=== PATIENT | female | born 1965 | race Hispanic/Latino ===

== ENCOUNTER 2016-11-08 07:31 | Emergency (ER) | payer MEDICAID, OTHER ==
[~2016-11-08] VITALS: Ht 172.7 cm; Wt 72.7 kg
[2016-11-08 07:40] VITALS: BP 147/90; PULSE 66; RESP 12; O2SAT 100
[2016-11-08] MEDS ORDERED: 0.9% Sodium Chloride 1,000 ML IV ONE (08:59)
[2016-11-08] MEDS ORDERED: Ondansetron 2 mg/mL 2 mL Inj IVPUSH ONE (09:00)
[2016-11-08] MEDS ORDERED: Haloperidol 5 mg/mL Inj IVPUSH ONE (09:00)
[2016-11-08] MEDS ORDERED: Dexamethasone 10 mg/mL Inj IVPUSH ONE (09:00)
--- NOTE | 2016-11-08 09:40 | ED.REPORT ---
HPI-Headache Date of Service Nov 08, 2016 ED Provider: Josefina Conrad MD A 50 year old female with a history of depression and a family history of stroke presents to the ED complaining of a headache. The pt has been experiencing this headache for three days and noticed right-sided facial numbness this morning. She has had similar headaches for the last three years, which have been gradually worsening, but has never experienced facial numbness. She did not have headaches prior to three years ago. Her PCP diagnosed her with stress headaches, but she has not had any further work up. The pt admits to nausea but denies vomiting, fever, chills, weakness, stiffness, weight loss or gain, shortness of breath, photophobia or paresthesias. She has not taken any medications to address her symptoms. Nursing Notes Stated Complaint: HEADACHE,NECK AND RIGHT SIDE OF FACE Chief Complaint: Headache Nursing Notes Reviewed: Yes Allergies: Coded Allergies: No Known Allergies (Unverified , 11/08/16) General Time Seen by MD: 07:57 Chief Complaint Headache Hx Obtained From: Patient Arrived By: Walk-in Sudden in Onset?: No Onset Occurred: 3 days ago Symptom Duration: Since onset Recent Healthcare: No recent hospitalization Similar Sx Previous: No Past Medical History Past Medical History depression headaches x3 years Past Surgical History none reported Family History stroke (sister) Smoking History Unknown if Ever Smoker Ambulatory Status Independent Review of Systems Review of Systems Note: denies recent weight gain denies paresthesias denies neck stiffness Constitutional: Denies: Chills, Fever, Recent wt loss, Weakness - generalized Eyes: Denies: Photophobia GI: Reports: Nausea, Denies: Abdominal pain, Vomiting Musculoskeletal: Denies: Back pain Skin: Denies Rash Neurologic: Reports: Headache, Numbness Complete sys rev & neg: except as marked. Respiratory: Denies: Non-productive cough, Shortness of breath Physical Exam Initial Vital Signs Vital Signs (First) Date Time Temp Pulse Resp B/P Pulse Ox O2 Delivery O2 Flow Rate FiO2 11/08/16 07:40 36.5 66 12 147/90 100 Room Air Initial VS: Reviewed General/Constitutional: Awake, Alert Head / Eyes: Atraumatic, Normocephalic, PERRL, EOMI Neck: Atraumatic, Supple, Full range of motion Neurologic: Oriented X3, Speech NL, No motor deficits, CN II - XII intact decreased sensation of right forehead and jaw ENT: Atraumatic, Airway patent, Mucous membranes moist Respiratory / Chest: Atraumatic, Breath sounds NL, Breath sounds = bilat, No respiratory distress Cardiovascular: Heart rate NL, Regular rhythm, Heart sounds NL Abdomen: Atraumatic, Soft, Non-tender Skin: Atraumatic, Color NL, No rash, Warm, Dry Psychiatric: Affect NL, Mood NL Back: Atraumatic, Full range of motion Upper Extremity / MS: Atraumatic, Full range of motion Lower Extremity / Pelvis / MS: Atraumatic, Full range of motion Interpretation & Diagnostics CT Head Interpretation IMPRESSION: 1. No acute intracranial abnormalities. 2. Cerebral volume loss and chronic microvascular ischemic changes. Dictated by: Speedy Dunlap M.D. on 11/08/2016 at 9:49 Approved by: Speedy Dunlap M.D. on 11/08/2016 at 9:52 Interpretation / Wet Read by: Interpret - Radiologist Re-Eval/Medical Decision Med Decision/Clinical Course History of presentation is strongly suggestive migraine headache. The fact that she has had symptoms for only the last 3 years of her life is less suggestive. As she is having some paresthesias over her face today and has not had any brain imaging will go ahead and do a CT scan today. No significant mass pathology or other findings on CT scan. Nice response to migraine cocktail without narcotics. Because the headaches been present for 3 days she has been given a dose of 10 mg of Decadron. Is discharged home in stable condition and will follow up with her primary care physician Source of Hx: Old records Re-Evaluation/Progress : Time of Eval: 10:45 )( Patient Status: Condition improved Re-Evaluation/Progress Note: Pt rechecked, whose headache has improved significantly. The diagnosis and plan for discharge are discussed. The pt understands and agrees with the plan. All questions are addressed at this time. Counseled Regarding: Diagnosis, Lab results, Need for follow-up, When/why to return to ED Discharge & Departure Impression: Primary Impression: Headache Headache type: unspecified Headache chronicity pattern: acute headache Intractability: not intractable Qualified Code: R51 - Headache Ruled Out: Brain tumor, Stroke Disposition: Home Discharge Condition All VS Reviewed: Yes Condition: Stable Patient Instructions: Acute Headache (ED) Additional Instructions: You came in today to be evaluated for headache. Your evaluation included head CT and physical exam. There was no sign of a dangerous condition such as stroke or tumor. You most likely have headache caused by migraine. Follow-up with your primary care provider in 2-3 days to discuss prevention and treatment of your headaches. Hoy llego usted a la joe de emergencias porque traia un dolor de tao. Despues de un estudio de deteccion por medio de esther Tomografia Cromatografica y un examen fisico, se le hizo esther evaluacion. No hubo senal de que tuviera algo grave isabela esther envolia o algun tumor. Lo mas probabale es que tenga un dolor de tao causado por esther migrana. Pase a lalitha a townsend medico de cabecera o de betty en los proximos 2-3 cummins para que hablen sobre algun metodo de prevencion y tratamiento para rayna rona de tao. Referrals: [facility] (PCP) Scribe Attestation Portions of this note were transcribed by Alison Joseph. I, Dr. Conrad personally performed the history, physical exam and medical decision-making; I reviewed and confirmed the accuracy of the information in the transcribed note. Signed by: Rufus Vu, 11/08/2016 and 1110. copies to: [facility] Josefina Conrad MD Nov 08, 2016 09:40 ALISON JOSEPH Nov 08, 2016 09:50
--- NOTE | 2016-11-08 09:54 | DRSVH ---
PROCEDURE: CT BRAIN WITHOUT CONTRAST ([id number]) INDICATIONS: 50 year-old woman with headache and left face paresthesia. TECHNIQUE: Noncontrast 4.5 mm thick angled axial sections acquired from the foramen magnum to the vertex, with c oronal reformats. COMPARISON: None. FINDINGS: Image quality: Excellent. CSF spaces: Basal cisterns are patent. No extra-axial fluid collections. Ventricles are normal in size and shape. Brain: No midline shift. No intracranial masses or hemorrhage. Aguilera-white matter interface is norm al. Skull and face: Calvarium and visualized facial bones are intact, without suspicious lesions. Sinuses: Visualized sinuses and mastoids are clear. IMPRESSION: 1. No acute intracranial abnormalities. 2. Cerebral volume loss and chronic microvascular ischemic changes. Dictated by: Speedy Dunlap M.D. on 11/08/2016 at 9:49 Approved by: Speedy Dunlap M.D. on 11/08/2016 at 9:52
[2016-11-08 10:55] VITALS: BP 131/61; PULSE 73; RESP 16; O2SAT 100
[2016-11-08 11:03] VITALS: BP 131/61; PULSE 73; RESP 16; O2SAT 100
== END 2016-11-08 11:05 | disposition home or self-care (01) ==
LOC: SED 07:31
DX: R51 Headache (principal); R20.2 Paresthesia of skin; R11.0 Nausea; F32.9 Major depressive disorder, single episode, unspecified
CPT/HCPCS: 70450; 96361; 96374; 96375; 99284; J1100; J1200; J1885; J2405; J7030